=== PATIENT | male | born 1965 | race Two or more races ===

== ENCOUNTER 2022-02-12 00:09 | Emergency (ER) | payer MEDICAID, OTHER ==
[~2022-02-12] VITALS: Ht 177.8 cm; Wt 63.5 kg
--- NOTE | 2022-02-12 00:31 | NUR ---
BIBRA 77 FOR C/O N/V/D FOR THE PAST FEW HOURS. PT WAS AXO4. VSS. TOLERATIN RA WITH NO RESP DISTRESS
[2022-02-12] MEDS ORDERED: IV NS 0.9% 1,000 ML BAG IV ONE (01:00)
[2022-02-12] MEDS ORDERED: ONDANSETRON HCL/PF 4 MG/2 ML VIAL IVP ONE (01:00)
--- NOTE | 2022-02-12 01:00 | NUR ---
PATIENT REFUSED BLOOD DRAW. RISKS VS BENEFITS EXPLAINED TO THE PT, AWARE
[2022-02-12] MEDS ORDERED: ONDANSETRON HCL/PF 4 MG/2 ML VIAL ONE (01:04)
--- NOTE | 2022-02-12 02:35 | NUR ---
Patient discharged to home in stable condition. Written and verbal after care instructions given. Patient verbalizes understanding of instruction.PT ambulatory with a steady gait
[2022-02-12 02:46] VITALS: BP 123/72
== END 2022-02-12 02:35 | disposition home or self-care (01) ==
LOC: ER 00:12
DX: R10.84 Generalized abdominal pain (principal); R11.2 Nausea with vomiting, unspecified; Z59.00 Homelessness unspecified
CPT/HCPCS: J2405